=== PATIENT | female | born 1980 | race Hispanic/Latino ===

== ENCOUNTER 2016-10-03 13:01 | Emergency (ER) | payer SELFPAY ==
[2016-10-03 13:13] VITALS: BP 123/70
--- NOTE | 2016-10-03 16:16 | XRay Report ---
FINAL REPORT PROCEDURE: XR FOOT 3 RT TECHNIQUE: Three views left foot HISTORY: rt foot injury COMPARISON: No prior studies are available for comparison. FINDINGS: Soft tissue swelling. Ventral calcaneal spurring. No definite fracture IMPRESSION: No fractures
--- NOTE | 2016-10-03 16:19 | XRay Report ---
FINAL REPORT PROCEDURE: XR ANKLE 3V RT TECHNIQUE: Three-view right ankle Initially labeled L and over marked with R right HISTORY: Right ankle injury COMPARISON: Right foot seen FINDINGS: Mild to moderate swelling about the right ankle. Small calcaneal spurring. Possible small effusion. Possible unfused chronic avulsion or other chronic triangular osseous projection at the mid tarsal area IMPRESSION: No fracture
[2016-10-03] MEDS ORDERED: MOTRIN PO ONE (16:52)
[2016-10-03] MEDS ORDERED: FLEXERIL PO ONE (16:52)
--- NOTE | 2016-10-03 17:04 | Emergency Department Report ---
HPI - General Chief Complaint: Extremity Injury, Lower Time Seen by Provider: 10/03/16 16:37 - HPI HPI: Symptoms are 36-year-old female who presents to ED complaining of right foot pain 1 day. Patient states she was asleep on the bed today when she stood up too fast" her foot and immediately got pain. Patient states she noticed some swelling around her anterior lateral aspect of her right foot. She states pain elicited with putting pressure on the right foot. Patient denies loss of sensation denies trauma denies serious S chills/nausea/ vomiting/abdominal pain/shortness of breath or any other problems. ED Past Medical Hx - Past Medical History Hx Psychiatric Treatment: Yes (depression) - Surgical History Additional Surgical History: , d&c, tubal ligation, wisdom teeth - Social History Smoking Status: Never Smoker Substance Use Type: None - Medications Home Medications: Home Medications Medication Instructions Recorded Confirmed Last Taken Type Cyclobenzaprine [Flexeril] 10 mg PO TID PRN #20 tablet 10/03/16 Unknown Rx Ibuprofen [Motrin 800 MG tab] 800 mg PO Q8HR PRN #30 tablet 10/03/16 Unknown Rx ED Review of Systems ROS: Stated complaint: RT FOOT INJURY Other details as noted in HPI Constitutional: denies: chills, fever Eyes: denies: eye pain, eye discharge, vision change ENT: denies: ear pain, throat pain Respiratory: denies: cough, shortness of breath, wheezing Cardiovascular: denies: chest pain, palpitations Endocrine: no symptoms reported Gastrointestinal: denies: abdominal pain, nausea, vomiting, diarrhea Genitourinary: denies: urgency, dysuria, discharge Musculoskeletal: denies: back pain, joint swelling, arthralgia, myalgia Skin: denies: rash, lesions Neurological: denies: headache, weakness, paresthesias Psychiatric: denies: anxiety, depression, auditory hallucinations, visual hallucinations Hematological/Lymphatic: denies: easy bleeding, easy bruising Physical Exam - Physical Exam Vital Signs: Vital Signs 10/03/16 13:09 Temperature 98.4 F Pulse Rate 100 H Respiratory 18 Rate Blood Pressure 123/70 O2 Sat by Pulse 100 Oximetry Physical Exam: GENERAL: Alert and oriented x3, no apparent distress, Normal Gait, atraumatic. HEAD: Head is normocephalic and a-traumatic. EYES: Extra ocular muscles are intact. Pupils are equal, round, and reactive to light and accommodation. EARS: symetrical, atraumatic, non tender, ear canal clear and moderate cerumen, tympanic membrance non inflamed. gross auditory nml bilaterally. NOSE: Nose symetrical, Nontender,Nares appeared normal. NECK: Supple. Non edematous, No carotid bruits. No lymphadenopathy or thyromegaly. LUNGS: Symetrical with respiration, No wheezing, no rales or crackles, CTAB. HEART: S1, S2 present, regular rate and rhythm without murmur, no rubs, no gallops. ABDOMEN: No organomegaly was noted,Positive bowel sounds, soft, and non- distended. . Nontender to palpation on all Quadrants, NO CVA tenderness. EXTREMITIES/MUSCULOSKELETAL: No cyanosis, clubbing, rash, lesions or edema. Full ROM bilaterally. UE/LE Pulses 2+ bilaterally. LE and UE 5+ strength bilaterally. mild echymosis and swelling on lateral right foot. Foot Intact. NEUROLOGIC: No focal Deficit, Cranial nerves II through XII are grossly intact. No loss of sensation, No facial droop, Negative rhomberg. SKIN: Warm and dry, No lesions, No ulceration or induration present. ED Course Vital Signs 10/03/16 13:09 Temperature 98.4 F Pulse Rate 100 H Respiratory 18 Rate Blood Pressure 123/70 O2 Sat by Pulse 100 Oximetry ED Medical Decision Making - Medical Decision Making 36-year-old female presents with a right foot sprain. Vital signs normal. Patient alert and nontender 3. ED course: Patient received 800 mg of ibuprofen and 10 mg of Flexeril. Patient received post op shoe and foot was Richy wrapped X-ray of right foot and ankle ordered. X-ray report shows calceneal spur and Mild tissue swelling otherwise normal x-ray no fracture is no dislocation or acute injury. Discussed results and report with patient. Discussed with patient to follow up with primary care physician. She verbally states she understands and will comply to follow instructions as given and follow-up with referrals as given Critical care attestation.: If time is entered above; I have spent that time in minutes in the direct care of this critically ill patient, excluding procedure time. ED Disposition Clinical Impression: Sprain of right foot Qualifiers: Encounter type: initial encounter Qualified Code(s): S93.601A - Unspecified sprain of right foot, initial encounter Disposition: DISCHARGED TO HOME OR SELFCARE Is pt being admited?: No Does the pt Need Aspirin: No Condition: Stable Instructions: Foot Sprain (ED), Ankle Exercises (GEN), RICE Therapy (ED) Prescriptions: Cyclobenzaprine [Flexeril] 10 mg PO TID PRN #20 tablet PRN Reason: Muscle Spasm Ibuprofen [Motrin 800 MG tab] 800 mg PO Q8HR PRN #30 tablet PRN Reason: Pain Referrals: PRIMARY CARE, [Primary Care Provider] - 3-5 Days [facility] [Outside] - 3-5 Days [facility] [Outside] - 3-5 Days [facility] [Outside] - 3-5 Days [facility] [Outside] - 3-5 Days Forms: Work/School Release Form(ED) Time of Disposition: 17:19
== END 2016-10-03 17:32 | disposition home or self-care (01) ==
LOC: ED 13:01
DX: S93.601A Unspecified sprain of right foot, initial encounter (principal); F32.9 Major depressive disorder, single episode, unspecified; X58.XXXA Exposure to other specified factors, initial encounter; Y93.9 Activity, unspecified; Y99.9 Unspecified external cause status; Y92.89 Other specified places as the place of occurrence of the external cause